=== PATIENT | female | born 1960 | race Caucasian/White ===

== ENCOUNTER → 2020-10-23 | Outpatient (CLI) | payer OTHER ==
[~2020-10-23] MED LIST: AMARYL1 MG PO; ASA81BEC PO; LIPITOR40 MG PO; MAXZIDE 75-501 EACH PO; METOPROLOL TART25 MG PO; NITROSTAT0.4 M1 SUBLING
[2020-10-23 09:50] LABS: URINE BILIRUBIN NEGATIVE (Negative); URINE BLOOD NEGATIVE (Negative); URINE CLARITY SL CLOUDY; URINE COLOR YELLOW; URINE GLUCOSE-RANDOM* NEGATIVE (Negative); URINE KETONES NEGATIVE (Negative); URINE NITRITE-REFLEX NEGATIVE (Negative); URINE PROTEIN (DIPSTICK) NEGATIVE (Negative); URINE UROBILINOGEN 0.2 E.U./dl (0.2-1.0)
[2020-10-23 09:52] LABS: EOSINOPHILS 1.2 % (0.0-3.0); HEMATOCRIT 42.1 % (37.0-47.0); HEMOGLOBIN 14.3 gm/dL (12.0-15.0); LYMPHOCYTES 22.9 % (24.0-44.0); MCH 29.4 pg (26.0-34.0); MCV 86.2 fL (80.0-100.0); MONOCYTES 6.6 % (1.0-8.0); PLATELET COUNT 297 thou/uL (150-400); POLYS 68.3 % (36.0-66.0); RBC 4.88 mil/uL (4.20-5.00); RDW 13.8 % (10.5-14.5); WBC 8.8 thou/uL (4.0-11.0)
[2020-10-23 10:11] LABS: APTT 24.3 Seconds (24.5-32.8); PROTIME 10.9 Seconds (9.3-11.4)
[2020-10-23 10:13] LABS: ALBUMIN 4.2 g/dL (3.4-5.0); CALCIUM 9.6 mg/dL (8.5-10.1); CREATININE 0.8 mg/dL (0.6-1.0); TOTAL BILIRUBIN 0.4 mg/dL (0.2-1.0); TOTAL PROTEIN 7.4 g/dL (6.4-8.2)
[2020-10-23 10:22] LABS: URINE LEUKOCYTES-REFLEX 1+ (Negative)
[2020-10-23 10:33] LABS: AMORPHOUS URATES Moderate /LPF (None Seen); SQUAMOUS >10 Many /LPF (0-3)
[2020-10-23 10:34] LABS: BACTERIA-REFLEX 1-9 Few /HPF (None Seen); FINE GRANULAR CASTS 0-3 Few /LPF (None Seen); HYALINE CASTS 0-3 Few /LPF (None Seen); URINE RBC None Seen /HPF (0-2); URINE WBC-REFLEX 0-5 Rare /HPF (0-5)
[2020-10-24 02:06] LABS: GLYCOHEMOGLOBIN (HGB A1C) 7.2 % (4.8-5.6)
== END ==
LOC: LAB 07:55
PROVIDERS: ATTEND Surgery Vascular Surgery
DX: Z01.812 Encounter for preprocedural laboratory examination (principal); Z20.822 Contact with and (suspected) exposure to COVID-19; J98.11 Atelectasis

== ENCOUNTER → 2020-10-23 | Outpatient (CLI) | payer OTHER | LOC: ULTRA 08:28 | PROVIDERS: ATTEND Surgery Vascular Surgery | DX: Z01.818 Encounter for other preprocedural examination (principal); I25.119 Atherosclerotic heart disease of native coronary artery with unspecified angina pectoris; I65.23 Occlusion and stenosis of bilateral carotid arteries ==

== ENCOUNTER 2020-10-25 11:23 | Inpatient (IN) | payer OTHER ==
[2020-10-25] VITALS (8 sets, daily range): BP systolic 114–143; BP diastolic 53–79
[~2020-10-25] VITALS: Ht 162.6 cm; Wt 87.8 kg
[2020-10-26] VITALS (13 sets, daily range): BP systolic 98–112; BP diastolic 51–71
--- NOTE | 2020-10-26 05:23 | NUR ---
Patient was able to get some sleep this shift. Heart rate and rhythm stable. Blood pressures stable. Adequate oxygenation on room air. Chlorhexadine bath given at HS and this am. Patient voiding adequate amounts. NPO since midnight. Patient states she is ready for surgery. Patient is progressing towards goals. See documentation on interventions for assessment details. No am lab ordered for today.
--- NOTE | 2020-10-26 06:22 | NUR ---
Patient just left for OR.
--- NOTE | 2020-10-26 07:00 | NUR ---
chart review. note she will be going for or today for cabg. unable to visit with her. will cont following as needed for dc needs. noted independent prior to hospital.
[2020-10-26 12:01] LABS: HEMATOCRIT 22.1 % (37.0-47.0); MCH 30.2 pg (26.0-34.0); MCHC 34.9 g/dL (28.0-37.0); MCV 86.3 fL (80.0-100.0); RBC 2.56 mil/uL (4.20-5.00); WBC 15.9 thou/uL (4.0-11.0)
[2020-10-26 12:03] LABS: HEMOGLOBIN 7.7 gm/dL (12.0-15.0)
[2020-10-26 12:19] LABS: APTT 27.6 Seconds (24.5-32.8); PROTIME 15.2 Seconds (9.3-11.4)
[2020-10-26 12:21] LABS: INR 1.42
[2020-10-26 12:40] LABS: POC BE 0 mmol/L (-2.0 to +3.0); POC CA IONIZED 4.8 mg/dL (4.5-5.3); POC GLUCOSE 167 mg/dL (70-99); POC HEMOGLOBIN 11.2 g/dL (12.0-15.0); POC POTASSIUM 3.4 mmol/L (3.5-5.1); POC SODIUM 140 mmol/L (136-145); POC pCO2 40.9 mmHg (35.0-45.0); POC pH 7.394 (7.360-7.450)
[2020-10-26 12:40] LABS: POC BE 2 mmol/L (-2.0 to +3.0); POC CA IONIZED 4.7 mg/dL (4.5-5.3); POC GLUCOSE 193 mg/dL (70-99); POC HCO3 25.9 mmol/L (22.0-26.0); POC HEMOGLOBIN 11.2 g/dL (12.0-15.0); POC POTASSIUM 4.2 mmol/L (3.5-5.1); POC SODIUM 138 mmol/L (136-145); POC pCO2 38.6 mmHg (35.0-45.0); POC pH 7.435 (7.360-7.450)
[2020-10-26 12:41] LABS: POC BE 0 mmol/L (-2.0 to +3.0); POC CA IONIZED 4.1 mg/dL (4.5-5.3); POC GLUCOSE 140 mg/dL (70-99); POC HCO3 23.9 mmol/L (22.0-26.0); POC HEMOGLOBIN 8.2 g/dL (12.0-15.0); POC POTASSIUM 3.6 mmol/L (3.5-5.1); POC SODIUM 137 mmol/L (136-145); POC pH 7.442 (7.360-7.450)
[2020-10-26 12:41] LABS: POC BE 0 mmol/L (-2.0 to +3.0); POC CA IONIZED 4.4 mg/dL (4.5-5.3); POC GLUCOSE 152 mg/dL (70-99); POC HCO3 24.7 mmol/L (22.0-26.0); POC HEMOGLOBIN 7.8 g/dL (12.0-15.0); POC POTASSIUM 3.6 mmol/L (3.5-5.1); POC SODIUM 142 mmol/L (136-145); POC pCO2 38.4 mmHg (35.0-45.0); POC pH 7.417 (7.360-7.450)
[2020-10-26 12:41] LABS: POC BE -1 mmol/L (-2.0 to +3.0); POC CA IONIZED 7.6 mg/dL (4.5-5.3); POC GLUCOSE 157 mg/dL (70-99); POC HCO3 24.5 mmol/L (22.0-26.0); POC HEMOGLOBIN 6.8 g/dL (12.0-15.0); POC POTASSIUM 3.3 mmol/L (3.5-5.1); POC SODIUM 140 mmol/L (136-145); POC pCO2 43.8 mmHg (35.0-45.0); POC pH 7.356 (7.360-7.450)
[2020-10-26 12:41] LABS: POC BE -1 mmol/L (-2.0 to +3.0); POC CA IONIZED 5.6 mg/dL (4.5-5.3); POC GLUCOSE 150 mg/dL (70-99); POC HCO3 23.5 mmol/L (22.0-26.0); POC HEMOGLOBIN 7.8 g/dL (12.0-15.0); POC POTASSIUM 2.8 mmol/L (3.5-5.1); POC SODIUM 142 mmol/L (136-145); POC pCO2 36.9 mmHg (35.0-45.0); POC pH 7.413 (7.360-7.450)
[2020-10-26 12:41] LABS: POC BE 0 mmol/L (-2.0 to +3.0); POC CA IONIZED 4.2 mg/dL (4.5-5.3); POC GLUCOSE 143 mg/dL (70-99); POC HCO3 23.9 mmol/L (22.0-26.0); POC HEMOGLOBIN 7.8 g/dL (12.0-15.0); POC POTASSIUM 3.4 mmol/L (3.5-5.1); POC SODIUM 140 mmol/L (136-145); POC pCO2 36.3 mmHg (35.0-45.0); POC pH 7.427 (7.360-7.450)
[2020-10-26 12:41] LABS: POC BE -3 mmol/L (-2.0 to +3.0); POC CA IONIZED 5.1 mg/dL (4.5-5.3); POC GLUCOSE 143 mg/dL (70-99); POC HCO3 22.1 mmol/L (22.0-26.0); POC HEMOGLOBIN 7.8 g/dL (12.0-15.0); POC POTASSIUM 3.4 mmol/L (3.5-5.1); POC SODIUM 143 mmol/L (136-145); POC pCO2 36.4 mmHg (35.0-45.0); POC pH 7.391 (7.360-7.450)
[2020-10-26 13:30] LABS: HEMATOCRIT 29.1 % (37.0-47.0); MCH 30.4 pg (26.0-34.0); MCHC 35.1 g/dL (28.0-37.0); MCV 86.6 fL (80.0-100.0); RBC 3.36 mil/uL (4.20-5.00); RDW 13.6 % (10.5-14.5); WBC 23.1 thou/uL (4.0-11.0)
[2020-10-26 13:35] LABS: HEMOGLOBIN 10.2 gm/dL (12.0-15.0)
[2020-10-26 13:41] LABS: APTT 25.1 Seconds (24.5-32.8); INR 1.12; PROTIME 12.1 Seconds (9.3-11.4)
[2020-10-26 13:45] LABS: CALCIUM 8.2 mg/dL (8.5-10.1); CREATININE 0.8 mg/dL (0.6-1.0); MAGNESIUM 2.2 mg/dL (1.8-2.4); POTASSIUM 3.3 mmol/L (3.5-5.1)
[2020-10-26 13:49] LABS: HCO3 19.8 mmol/L (22.0-26.0); PCO2 35.8 mmHg (35.0-45.0); PO2 97.7 mmHg (80.0-100.0); pH 7.361 (7.360-7.450); sO2 97.3 % (92.0-98.0)
--- NOTE | 2020-10-26 14:51 | NUR ---
Nutrition: Planned CABG today. Consult received. RD will followup to address education needs when out of ICU.
[2020-10-26 17:57] LABS: BE(vivo) -5.4 mmol/L (-2 to +3); HCO3 18.2 mmol/L (22.0-26.0); PCO2 29.1 mmHg (35.0-45.0); PO2 161.7 mmHg (80.0-100.0); pH 7.413 (7.360-7.450); sO2 99.1 % (92.0-98.0)
[2020-10-26 18:57] LABS: BE(vivo) -3.7 mmol/L (-2 to +3); HCO3 21.1 mmol/L (22.0-26.0); PCO2 37.1 mmHg (35.0-45.0); PO2 108.9 mmHg (80.0-100.0); pH 7.372 (7.360-7.450); sO2 97.9 % (92.0-98.0)
--- NOTE | 2020-10-26 19:27 | NUR ---
1330-RECEIVED FROM O.R. S/P CABG W OH TEAM IN ATTENDANCE.NO GTTS.--VW 1400-FR.JOSIAH IN.--VW 1530-FRIEND BRE & HIS IN FOR BRIEF VISIT.--VW 183-PT HAS DONE WELL. R.T. WORKING W PT.CPAP TRIAL DONE-VOLUMES A LITTLE LOW BUT OVERALL DOING WELL. PT VERY AGITATED & ANXIOUS AT TIMES.MUCH REASSURANCE GIVEN.--VW 185-CARE TURNED OVER TO ONCOMING RN.--VW
[2020-10-27 03:34] VITALS: BP 117/64
[2020-10-27 04:25] LABS: HEMATOCRIT 25.7 % (37.0-47.0); HEMOGLOBIN 8.8 gm/dL (12.0-15.0); MCH 29.6 pg (26.0-34.0); MCHC 34.2 g/dL (28.0-37.0); MCV 86.6 fL (80.0-100.0); RBC 2.97 mil/uL (4.20-5.00); RDW 13.9 % (10.5-14.5); WBC 14.9 thou/uL (4.0-11.0)
[2020-10-27 05:02] LABS: CALCIUM 7.9 mg/dL (8.5-10.1); CREATININE 0.7 mg/dL (0.6-1.0); MAGNESIUM 2.1 mg/dL (1.8-2.4); POTASSIUM 3.6 mmol/L (3.5-5.1)
--- NOTE | 2020-10-27 07:00 | NUR ---
Dr. Woodall here. Update given. Orders given. Insulin gtt and Cardene turned off. Pt up in chair and tolorating well.
--- NOTE | 2020-10-27 07:04 | EKG ---
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
--- NOTE | 2020-10-27 08:42 | EKG ---
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 10/27/2042 8 8 Jin Mantilla MD, [facility] /EPI
--- NOTE | 2020-10-27 11:00 | NUR ---
Dr. Woodall here. Update given. Orders given
--- NOTE | 2020-10-27 16:40 | NUR ---
unable to visit with bridgette rt visitor in room. noted she independent prior to hospital. no dme. will cont following as needed for dc needs. dcp home.
[2020-10-27 19:18] VITALS: BP 136/80
--- NOTE | 2020-10-27 20:22 | NUR ---
End of shift note. Pt progressing towards goals. Back in bed and comfortable.
[2020-10-27 23:17] VITALS: BP 123/64
[2020-10-28] VITALS (8 sets, daily range): BP systolic 104–144; BP diastolic 60–80
[2020-10-28 04:56] LABS: ALBUMIN 3.3 g/dL (3.4-5.0); CALCIUM 7.8 mg/dL (8.5-10.1); CREATININE 0.6 mg/dL (0.6-1.0); TOTAL BILIRUBIN 0.3 mg/dL (0.2-1.0); TOTAL PROTEIN 5.7 g/dL (6.4-8.2)
[2020-10-28 04:57] LABS: HEMATOCRIT 24.3 % (37.0-47.0); HEMOGLOBIN 8.5 gm/dL (12.0-15.0); MCH 30.4 pg (26.0-34.0); MCV 86.8 fL (80.0-100.0); RBC 2.8 mil/uL (4.20-5.00); RDW 13.7 % (10.5-14.5); WBC 14.6 thou/uL (4.0-11.0)
--- NOTE | 2020-10-28 13:45 | NUR ---
report called to JOSE ALBERTO Templeton.
--- NOTE | 2020-10-28 14:25 | NUR ---
progressing today. back to bed for late breakfast, back up in chair prior to lunch. discomfort uncontrolled in am, hydrocodone 2 tabs given with pain relief. sr, dc'd RIJ introducer and radial huong with guaze/opsite dressings applied. pct- 40cc drainage. pulling 500cc on incentive spirometer x 10, taking deep breaths/splinting with nonproductive cough. poor appetite. friends present for her support. transferred to [facility] #215 per wheelchair on database tester and o2.
--- NOTE | 2020-10-28 16:51 | NUR ---
PT TRANSFERED FROM THE ICU THIS AFTERNOON. ORIENTED TO ROOM AND BEDSPACE. COMPLETE PAIN RELIEF FROM MEDS GIVEN PRIOR TO TRRANSFER / CO'S OF NAUSEA, GIVEN ZOFRAN WITH GOOD RELIEF. DR RAHMAN REMOVED PLEURAL CHEST TUBE THIS AFTERNOON - CHEST XRAY COMPLETED. PT NOT APPEARING TO HAVE ANY DIFFICULTY BREATHING POST REMOVAL. ACCUCHECK CHARTED. APPEARS TO BE RESTING AT THE PRESENT TIME.
--- NOTE | 2020-10-29 03:02 | NUR ---
ASSESSMENTS CHARTED, MEDS CHARTED GIVEN. TRANSFERED FROM ICU DURING DAY. PO DAY 2 FROM CABG X 4. UP TO BSC WITH ASSIST X 1. GOOD URINE OUTPUT. WOUND VAC IN PLACE AND SEALED WELL. PACER WIRES COVERED. CHEST TUBE WAS DC'D TODAY WITH 3 MM LEFT PNEUMOTHORAX AND MILD CARDIOMEGALY ON CXR. PLAN OF CARE IS WIRE REMOVAL TODAY, CONTINUE REHAB, SHOWER THEN HOME TODAY OR TOMORROW. FALL PRECAUTIONS IN PLACE DURING SHIFT.
[2020-10-29 04:11] VITALS: BP 113/74
[2020-10-29 10:00] VITALS: BP 119/71
[2020-10-29 12:00] VITALS: BP 122/63
[2020-10-29 16:00] VITALS: BP 112/61
--- NOTE | 2020-10-29 16:55 | NUR ---
ASSESSMENT CHARTED - MEDS PER MAR - NO CO'S OF PAIN OF NASUEA. [place] DIET AND FLUIDS. PATIENT ORDERING FROM [facility] AND STATES SHE FEELS APPITITE IS COMING BACK. UP TO THE BSC WITH 1 ASSIST - AMBUALTED IN THE HALLS WITH PHYS THERAPY AND USE OF WALKER DID WELL - UP TO THE CHAIR FOR THE AM - PT GIVEN GAUZE FOR R EYE - PATIENT FEELS SHE IRRIATED EYE WHEN SHE PLACED CONTACT BACK IN IT AND WANTED TO COVER IT FOR THE AFTERNOON -EVENEING. ACCUCHECKS CHARTED - WOUND VAC REMAINS INSITU NO CO'S AT THE PRESENT TIME.
[2020-10-29 20:00] VITALS: BP 121/71; BP 190/66
[2020-10-30] VITALS (8 sets, daily range): BP systolic 119–128; BP diastolic 61–77
--- NOTE | 2020-10-30 04:12 | NUR ---
ASSESSMENTS CHARTED, MEDS CHARTED GIVEN. PATIENT WALKED FROM 40 FEET THIS EVENING STOPPING FREQUENTLY TO REST. PATIENT PASSING GAS, BUT NO BOWEL MOVEMENT OF YET. FALL PRECAUTIONS IN PLACE DURING SHIFT.
[2020-10-30 04:54] LABS: ABSOLUTE NEUTROPHILS 9.5 thou/uL (1.4-8.2); BASOPHILS 0.4 % (0.0-2.0); EOSINOPHILS 0.8 % (0.0-3.0); HEMATOCRIT 26.1 % (37.0-47.0); MCH 30.1 pg (26.0-34.0); MCHC 34.4 g/dL (28.0-37.0); MCV 87.5 fL (80.0-100.0); MONOCYTES 6.8 % (1.0-8.0); RBC 2.98 mil/uL (4.20-5.00); RDW 13.9 % (10.5-14.5); WBC 12.7 thou/uL (4.0-11.0)
[2020-10-30 04:59] LABS: PLATELET COUNT 266 thou/uL (150-400)
[2020-10-30 05:11] LABS: ALBUMIN 3.1 g/dL (3.4-5.0); CALCIUM 8.4 mg/dL (8.5-10.1); CREATININE 0.7 mg/dL (0.6-1.0); POTASSIUM 3.6 mmol/L (3.5-5.1); TOTAL BILIRUBIN 0.5 mg/dL (0.2-1.0); TOTAL PROTEIN 6.1 g/dL (6.4-8.2)
--- NOTE | 2020-10-30 08:31 | EKG ---
[address] [place] [place] [address] ELECTROCARDIOGRAM REPORT Name: ANDREA PINEDA Room #: 215- ADM IN M.R.#: [id number] Admission: 10/25/20 Attend Phys: Tavo Taylor MD Discharge: Date of : 60 Report #: [id number] [facility] Test Date: 2020-10-30 Test Time: 07:43:31 Pat Name: ANDREA PINEDA Department: Room: 215 P Gender: F Exercise Physiologist Certified: ALEXIS : 1960 Requested By: Jorge Woodall Order Number: [id number] MD: Jin Mantilla Measurements Intervals [place] Rate: 74 P: 63 [place]: 143 QRS: 60 QRSD: 93 T: -20 QT: 413 QTc: 459 Interpretive Statements Sinus rhythm Borderline T wave abnormalities Compared to ECG 10/27/2020 07:19:12 Early R wave progression no longer present Electronically Signed On 10-30-2020 8:31:28 CDT by Jin Mantilla [email or web address] <ELECTRONICALLY SIGNED> By: Jin Mantlila MD, [facility] 10/30/2031 2 2 Jin Mantilla MD, [facility] /EPI
--- NOTE | 2020-10-30 16:01 | NUR ---
PT CARE ASSUMED AT 0700. ASSESSMENTS CHARTED. MEDICATIONS CHARTED. RAC IV. LH IV; D/C'D, INFILTRATED. SINUS RHYTHM. BSC. ACHS. CXR VIA WHEELCHAIR. WOUND VAC TO STERNUM. POST OP DAY 4; CABG X 4.
[2020-10-31 04:45] VITALS: BP 107/59
[2020-10-31 07:22] VITALS: BP 112/63
[2020-10-31 07:45] VITALS: BP 112/63
--- NOTE | 2020-10-31 07:53 | NUR ---
PT STATES HER INCISIONAL PAIN IS CONTROLLED BUT LEFT UPPER ARM AND HAND PAIN REQUIRED PAIN MEDS AT HS AND WARM COMPRESS AND STATES IT WAS FEELING MUCH BETTER BUT SHE IS STILL AWARE OF SOME DISCOMFORT, UP TO BR TO VOID THRU THE NOC, INCISION WITH WOUND VAC INTACT, VSS, WILL CON'T TO MONITOR PER PPOC.
[2020-10-31 10:19] VITALS: BP 112/63
[2020-10-31] MEDS ORDERED: HYDROCODON-ACE1 EAC7 PO (11:39)
[2020-10-31] MEDS ORDERED: PACERONE 200 M200 M1 PO (11:39)
[2020-10-31] MEDS ORDERED: FERREX 150 PLU1 EAC1 PO (11:39)
[2020-10-31] MEDS ORDERED: COLACE 100 MG100 MG PO (11:39)
--- NOTE | 2020-10-31 12:43 | NUR ---
PT CARE ASSUMED AT 0700. ASSESSEMENTS CHARTED. MEDICATIONS CHARTED. RAC IV. SINUS RHYTHM. HARVEST SITES BANDAGED. CHEST TUBE AND WIRES REMOVED. POST OP DAY 6; CABG X 4. PT DISCHARGED TO HOME. DISCHARGE PAPERWORK SIGNED. TELEMETRY D/C'D. IV D/C'D. PT HOME WITH PORTABLE WOUND VAC.
--- NOTE | 2020-10-31 14:15 | NUR ---
Patient to discharge home today. 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 Family at bedside. Discussed home health care and patient declines. Patient reports plan to f/u with Dr Flores in a week. She reports her family will be assisting at home. no further needs
== END 2020-10-31 12:35 | disposition home or self-care (01) | DRG 236 ==
LOC: CATH 11:23 → ICU 17:20 → 2N 17:20
PROVIDERS: Nuclear Medicine Nuclear Cardiology; Physician Assistant; Surgery Vascular Surgery; ADMIT Internal Medicine; ATTEND Internal Medicine
DX: I25.10 Atherosclerotic heart disease of native coronary artery without angina pectoris (principal); E11.9 Type 2 diabetes mellitus without complications; I10 Essential (primary) hypertension; E78.00 Pure hypercholesterolemia, unspecified; R53.81 Other malaise; K21.9 Gastro-esophageal reflux disease without esophagitis; I65.21 Occlusion and stenosis of right carotid artery; E66.01 Morbid (severe) obesity due to excess calories; Z68.33 Body mass index [BMI] 33.0-33.9, adult; Z91.040 Latex allergy status; Z79.82 Long term (current) use of aspirin; Z79.899 Other long term (current) drug therapy; Z82.49 Family history of ischemic heart disease and other diseases of the circulatory system
CPT/HCPCS: 10078; 10081; 47000; 47001; 47002; 47297; 48889; 50010; 50249; 50643; 50668; 50953; 51301; 52131; 52287; 53327; 53358; 54118; 55415; 56455; 56524; 56525; 56526; 56527; 56528; 56531; 56534; 56668; 56719; 56760; 57093; 57167; 62110; 62950; 65003; 65020; 65090; 65135